=== PATIENT | female | born 1985 | race Caucasian/White ===

== ENCOUNTER 2019-02-12 06:23 | Day surgery (SDC) | payer BC ==
[2019-02-10 16:56] VITALS: BMI 26.3
[~2019-02-12] VITALS: Ht 160 cm; Wt 67.0 kg
[2019-02-12] VITALS (11 sets, daily range): BP systolic 100–115; BP diastolic 55–70; PULSE 18–95; RESP 15–26; Ht 160 cm; Wt 67.0 kg
[2019-02-12] MEDS ORDERED: DESFLURANE 15 MIN ONE (07:00)
--- NOTE | 2019-02-12 07:12 | PREOPHP ---
DATE OF ADMISSION: 02/12/2019 HISTORY OF PRESENT ILLNESS: This is a 33-year-old lady, 4, para 2 with 2 spontaneous abortio ns. Her last normal menstrual period was few days prior to admission. She was admitted for LEEP and D and C. This patient had an abnormal Pap smear, ASCUS plus positive HPV. Colposcopy biopsy done s howed MILEY 2, so she was admitted for the above procedure. The procedures were explained to the patie nt and she understood everything totally. The risks, benefits and alternatives were discussed with h er as well. PAST PERSONAL HISTORY: No history of diabetes, TB, asthma. ALLERGIES: THE PATIENT IS ALLERGIC TO ADVIL. PAST SURGICAL HISTORY: She had a D and C done in October 2018. She had cone biopsy done at the age of 17 according to the patient. GYNECOLOGIC HISTORY: She is 4, para 2. She had menarche at the age of 10, every 28 days inter nabeel, 3 to 4 days duration, and moderate in amount. FAMILY HISTORY: Father has heart disease. Mother has high blood pressure and father had a stroke. Father and mother had diabetes. She is 5, para 2. She had 2 normal deliveries. She had 2 s pontaneous abortions. REVIEW OF SYSTEMS: CARDIOVASCULAR: No chest pain. RESPIRATORY: No cough. GASTROINTESTINAL: No diarrhea, no vomiting. GENITOURINARY: No dysuria. PHYSICAL EXAMINATION: GENERAL: Reveals a conscious, coherent lady and in no acute distress. VITAL SIGNS: Her blood pressure 120/80, pulse rate 80 per minute, respirations 16 per minute. BREASTS, HEART AND LUNGS: Within normal limits. ABDOMEN: Soft. No organomegaly. PELVIC: Revealed the cervix to be firm, uterus of normal size, and adnexa were negative for masses. RECTAL: Confirmed the pelvic findings. EXTREMITIES: No pedal edema. ADMITTING DIAGNOSIS: Moderate cervical dysplasia, rule out severe dysplasia. The patient was planne d to have a LEEP and D and C. The procedures were explained to the patient and she understood everyt shirlene totally. The risks, benefits and alternatives were discussed with her as well. Dictated By: RUDI LIRA/SHADE Conf#: [id number] DID#: [id number]
[2019-02-12] MEDS ORDERED: PREN-32 PO (08:00)
[2019-02-12] MEDS ORDERED: CEPH500C ORAL (08:00)
--- NOTE | 2019-02-12 08:48 | PREAC ---
Date/Time of Note Date/Time of Note DATE: 02/12/19 TIME: 08:46 Anesthesia Eval and Record Evaluation Time Pre-Procedure Interview DATE: 02/12/19 TIME: 08:46 Age 33 Sex female NPO: 8 hrs Preoperative diagnosis Cevical MILEY Ii Planned procedure LOOP electroresectional excision , fractional D&C Past Medical History Past Medical History: None Surgery & Anesthesia Issues No known issue Meds Anticoagulation: No Beta Antonio within 24 hr: No Reason Beta Antonio not given: Pt. not on B-Antonio Reported Medications #103/Iron Fumarate/FA ( Tablet) 1 Each Tablet, 1 TAB PO DAILY, TAB 02/12/19 Cephalexin* (Cephalexin*) 500 Mg Capsule, 1 CAP ORAL QID 02/12/19 Meds reviewed: Yes Allergies Coded Allergies: almond (Verified Allergy, Unknown, HIVES, 02/12/19) avocado (Verified Allergy, Unknown, HIVES, 02/12/19) ciprofloxacin (Verified Allergy, Unknown, RASH, 02/12/19) ibuprofen (Verified Allergy, Unknown, HIVES, 02/12/19) melon (Verified Allergy, Unknown, HIVES, 02/12/19) pineapple (Verified Allergy, Unknown, HIVES, 02/12/19) Uncoded Allergies: FLU SHOT (Allergy, Unknown, HIVES, 02/10/19) Allergies Reviewed: Yes Labs/Studies Labs Reviewed: Reviewed by anesthesiologist test: Negative Studies: ECG (n/a), CXR (n/a) Pre-procedure Exam Last vitals Vital Signs Date Temp Pulse Resp B/P (MAP) Pulse Ox O2 O2 Flow FiO2 Time Delivery Rate 02/12/19 98.5 82 16 102/64 100 07:37 (77) Airway: Adequate mouth opening Mallampati: Mallampati I Teeth: Normal Lung: Normal Heart: Normal ASA Physical Status ASA physical status: 1 Emergency: None Planned Anesthetic General/MAC: LMA Planned Pain Management Parenteral pain med Pre-operative Attestations Prior to commencing anesthesia and surgery, the patient was re-evaluated, there was verification of: *The patient's identity *The results of appropriate recent lab work and preoperative vital signs *The above evaluation not changing prior to induction *Anesthetic plan, risk benefits, alternative and complications discussed with patient/family; questions answered; patient/family understands, accepts and wishes to proceed. AASHISH DIAZ MD Feb 12, 2019 08:48
[2019-02-12] MEDS ORDERED: MIDAZOLAM 1 MG/ML 2 ML INJ ONE (08:49)
[2019-02-12] MEDS ORDERED: ONDANSETRON 4 MG INJ ONE (08:53)
[2019-02-12] MEDS ORDERED: CEFAZOLIN 1 GM INJ ONE (08:53)
[2019-02-12] MEDS ORDERED: KETOROLAC 30 MG INJ ONE (08:53)
[2019-02-12] MEDS ORDERED: METOCLOPRAMIDE 10 MG INJ ONE (08:53)
[2019-02-12] MEDS ORDERED: PROPOFOL 20 ML ONE (08:53)
[2019-02-12] MEDS ORDERED: FENTAnyl 50 MCG/ML VIAL ONE (08:56)
[2019-02-12] MEDS ORDERED: STRONG IODINE 14 ML SOLUTION TOP ONE (09:04)
[2019-02-12] MEDS ORDERED: OXYCODONE/ACETAMINOPHEN (5/325) TAB PO PRN ×2 (09:30)
[2019-02-12] MEDS ORDERED: DIPHENHYDRAMINE 50 MG INJ IV PRN (09:30)
[2019-02-12] MEDS ORDERED: MEPERIDINE 25 MG INJ IV PRN (09:30)
[2019-02-12] MEDS ORDERED: HYDROmorphONE 1 MG/5 ML IV SYRINGE IV PRN ×3 (09:30)
[2019-02-12] MEDS ORDERED: ONDANSETRON 4 MG INJ IV PRN (09:30)
[2019-02-12] MEDS ORDERED: FENTAnyl 50 MCG/ML VIAL IV PRN ×3 (09:30)
--- NOTE | 2019-02-12 10:10 | SIPON ---
Date/Time of Note Date/Time of Note DATE: 02/12/19 TIME: 10:09 Operative Report Preoperative Diagnosis MILEY 2 MODERATE CERVICAL DYSPLASIA Postoperative Diagnosis MILEY 2 MODERATE CERVICAL DYSPLASIA Operation/Procedure Performed LEEP D&C Surgeon see signature line salon assistant HEAVY LIFT RIGGER Anesthesia: general Estimated blood loss: minimal Transfusion Required none Specimen ECTOCERVIX ENDOCERVIX ECC EMC Grafts/Implants none Complications none RUDI LYNN MD Feb 12, 2019 10:10
[2019-02-12] MEDS ORDERED: ACETAMINOPHEN 325 MG TAB PO PRN (10:30)
--- NOTE | 2019-02-12 14:01 | OPR ---
DATE OF OPERATION: 02/12/2019 PREOPERATIVE DIAGNOSES: Moderate cervical dysplasia, rule out carcinoma of the cervix. POSTOPERATIVE DIAGNOSES: Moderate cervical dysplasia, rule out carcinoma of the cervix, pending path ology report. SURGEON: Rudi Maharaj MD MANUFACTURING STOREPERSON: Xavi piper. ANESTHESIA: General. OPERATION PERFORMED: LEEP and D and C. OPERATIVE TECHNIQUE: Under general anesthesia, the patient was prepped and draped in the usual fashi on for vaginal surgery. Pelvic exam under anesthesia revealed the cervix to be firm, uterus of rudi l size and adnexa were negative for masses. Then, the heavyweight vaginal retractor was put in place and the anterior lip of the cervix was grasped with an Allis clamp. The cervix and vagina was dabbe d with Lugol's solution. The external os of the cervix posteriorly did not take the Lugol's solution . The loop was passed from left to right on the posterior lip of the cervix and from left to right o n the anterior lip of the cervix, good amount of tissue was obtained. A smaller loop was passed up t o the endocervical canal. A good amount of tissue was obtained. Endocervical curettage was done and a small amount of tissue was obtained. Endometrial curettage was done and a small amount of tissue was obtained. Then the site of the biopsy was cauterized and no bleeding was noted. A small piece o f Surgicel was left at the site of the biopsy. The patient tolerated the procedure well. Estimated blood loss was minimal. Vital signs were stable during and after the procedure. Dictated By: RUDI LIRA/SHADE Conf#: [id number] DID#: [id number]
--- NOTE | 2019-02-13 14:11 | PAC ---
Date/Time of Note Date/Time of Note DATE: 02/13/19 TIME: 14:11 Post-Anesthesia Notes Post-Anesthesia Note Last documented vital signs Vital Signs Date Temp Pulse Resp B/P (MAP) Pulse Ox O2 O2 Flow FiO2 Time Delivery Rate 02/12/19 98.5 18 18 115/59 98 Room Air 10:30 (77) 02/12/19 7.0 09:27 Activity: WNL Respiratory function: WNL Cardiovascular function: WNL Mental status: Baseline Pain reasonably controlled: Yes Hydration appropriate: Yes Nausea/Vomiting absent: No AASHISH DIAZ MD Feb 13, 2019 14:11
== END 2019-02-12 10:50 | disposition home or self-care (01) ==
LOC: SDS 06:23
PROVIDERS: ATTEND Obstetrics & Gynecology
DX: N87.1 Moderate cervical dysplasia (principal)
CPT/HCPCS: 57522; 84702; 84703; 86850; 86900; 86901; 88305; J0690; J1885; J2250; J2405; J2765; J3010; Z7512; Z7610

== ENCOUNTER 2019-05-28 14:58 | Emergency (ER) | payer BC ==
[~2019-05-28] VITALS: Ht 160 cm; Wt 68.6 kg
[~2019-05-28 14:58] MED LIST: CEPH500C ORAL; PREN-32 PO
[2019-05-28 15:29] VITALS: BP 148/95; PULSE 103; RESP 16; Ht 160 cm; Wt 68.6 kg
--- NOTE | 2019-05-28 17:50 | ERD ---
ER Documentation Chief Complaint Chief Complaint home preg+; cramping+VB x1d. feels weak. hx "LEEP" procedure. HPI Is a 33-year-old female who just found out she was status post home test. She is complaining of pelvic cramping and vaginal bleeding that she describes as similar to her.. Her bleeding started today. No fever. No nausea or vomiting. Has appointment with [facility] next week. ROS All systems reviewed and are negative except as per history of present illness. Medications Home Meds Reported Medications #103/Iron Fumarate/FA ( Tablet) 1 Each Tablet, 1 TAB PO DAILY, TAB 02/12/19 Cephalexin* (Cephalexin*) 500 Mg Capsule, 1 CAP ORAL QID 02/12/19 Allergies Allergies: Coded Allergies: almond (Verified Allergy, Unknown, HIVES, 05/28/19) avocado (Verified Allergy, Unknown, HIVES, 05/28/19) ciprofloxacin (Verified Allergy, Unknown, RASH, 05/28/19) ibuprofen (Verified Allergy, Unknown, HIVES, 05/28/19) melon (Verified Allergy, Unknown, HIVES, 05/28/19) pineapple (Verified Allergy, Unknown, HIVES, 05/28/19) pseudoephedrine (Verified Allergy, Unknown, 05/28/19) Uncoded Allergies: FLU SHOT (Allergy, Unknown, HIVES, 02/10/19) PMhx/Soc History of Surgery: Yes (CONE BX AT A6, TWO D AND C) Anesthesia Reaction: Yes (EMOTIONAL- CRIES) Hx Neurological Disorder: No Hx Respiratory Disorders: No Hx Cardiac Disorders: No Hx Psychiatric Problems: No Hx Miscellaneous Medical Probl: No Hx Alcohol Use: No Hx Substance Use: No Hx Tobacco Use: No Smoking Status: Never smoker FmHx Family History: No diabetes Physical Exam Vitals Vital Signs Date Temp Pulse Resp B/P (MAP) Pulse Ox O2 O2 Flow FiO2 Time Delivery Rate 05/28/19 99.3 103 16 148/95 100 15:29 (112) Physical Exam INITIAL VITAL SIGNS: Reviewed by me GENERAL: Awake, alert and oriented x 4, well appearing, nontoxic, speaking in full sentences. No acute distress HEAD: Atraumatic NECK: Supple. No masses. Full range of motion. No meningismus. No midline tenderness. EYES: EOMI. PERRL. RESPIRATORY: Clear to auscultation bilaterally. Symmetric chest wall rise. No wheezing or rales. No accessory muscle use. CV: Regular rate and rhythm. No murmurs, rubs, or gallops. ABDOMEN: Soft, non-distended. Nontender. Negative [place]. Negative [place] point tenderness. No CVA tenderness bilaterally. No guarding. No rebound. Result Diagram: 05/28/19 1633 Results 24 hrs Laboratory Tests Test 05/28/19 16:33 White Blood Count 7.6 10^3/ul Red Blood Count 4.71 10^6/ul Hemoglobin 14.9 g/dl Hematocrit 45.0 % Mean Corpuscular Volume 95.5 fl Mean Corpuscular Hemoglobin 31.6 pg Mean Corpuscular Hemoglobin Concent 33.1 g/dl Red Cell Distribution Width 12.7 % Platelet Count 231 10^3/UL Mean Platelet Volume 11.0 fl Immature Granulocytes % 0.300 % Neutrophils % 61.1 % Lymphocytes % 30.8 % Monocytes % 5.6 % Eosinophils % 1.8 % Basophils % 0.4 % Nucleated Red Blood Cells % 0.0 /100WBC Immature Granulocytes # 0.020 10^3/ul Neutrophils # 4.7 10^3/ul Lymphocytes # 2.4 10^3/ul Monocytes # 0.4 10^3/ul Eosinophils # 0.1 10^3/ul Basophils # 0.0 10^3/ul Nucleated Red Blood Cells # 0.0 10^3/ul Urine Color STRAW Urine Clarity CLEAR Urine pH 8.0 Urine Specific [place] 1.003 Urine Ketones NEGATIVE mg/dL Urine Nitrite NEGATIVE mg/dL Urine Bilirubin NEGATIVE mg/dL Urine Urobilinogen NEGATIVE mg/dL Urine Leukocyte Esterase TRACE [place]/ul Urine Microscopic RBC 43 /HPF Urine Microscopic WBC 4 /HPF Urine Bacteria FEW /HPF Urine Hemoglobin 3+ mg/dL Urine Glucose NEGATIVE mg/dL Urine Total Protein NEGATIVE mg/dl Beta HCG, Quantitative 7.0 mIU/ml Procedures/MDM The differential diagnosis includes but is not limited to threatened/incomplete/inevitable/complete , ectopic , non- related bleeding, and others. Beta-hCG is 7 and ultrasound shows no IUP. Patient is to return here in 2 days for repeat beta-hCG and ultrasound. Patient counseled regarding my diagnostic impression and care plan. Prior to discharge all questions answered. Pt agrees with treatment plan and understands strict return precautions. Pt is instructed to follow up with primary care provider within 24-48 hours. Precautionary instructions provided including instructions to return to the ER if not improving or for any worsening or changing symptoms or concerns. Departure Diagnosis: Primary Impression: Threatened Condition: Stable Patient Instructions: Possible Miscarriage (Threatened ) Additional Instructions: Call your primary care doctor TOMORROW for an appointment during the next 1-2 days.See the doctor sooner or return here if your condition worsens before your appointment time. LEANDRO FUNK PA-C May 28, 2019 17:50
== END 2019-05-28 17:47 | disposition home or self-care (01) ==
LOC: FTE 14:58
DX: O20.0 Threatened abortion (principal); Z3A.00 Weeks of gestation of pregnancy not specified
CPT/HCPCS: 36415; 76801; 76817; 81001; 84702; 85025; 86900; 86901